=== PATIENT | female | born 1955 | race Caucasian/White ===

== ENCOUNTER → 2016-07-27 | Outpatient (CLI) | payer BC ==
[~2016-07-27] MED LIST: ALUMCHW2 PO; B-COCAP2 PO; CALC500C50 PO; MULT-513 PO; [UNRECOGNIZED DRUG - REMARK] PO
== END | disposition home or self-care (01) ==
LOC: C.LABSPEC 10:22
PROVIDERS: ATTEND Obstetrics & Gynecology
DX: R30.0 Dysuria (principal); L28.0 Lichen simplex chronicus

== ENCOUNTER → 2016-09-05 | Outpatient (CLI) | payer BC | END | disposition home or self-care (01) | LOC: C.LABPVFM 13:59 | PROVIDERS: ATTEND Family Medicine | DX: N39.0 Urinary tract infection, site not specified (principal) ==

== ENCOUNTER → 2016-11-22 | Outpatient (CLI) | payer BC | END | disposition home or self-care (01) | LOC: C.PAPS 09:28 | PROVIDERS: ATTEND Obstetrics & Gynecology | DX: Z01.419 Encounter for gynecological examination (general) (routine) without abnormal findings (principal) ==

== ENCOUNTER → 2018-01-21 | Outpatient (CLI) | payer BC | END | disposition home or self-care (01) | LOC: C.PAPS 13:22 | PROVIDERS: ATTEND Obstetrics & Gynecology | DX: Z01.419 Encounter for gynecological examination (general) (routine) without abnormal findings (principal) ==